=== PATIENT | female | born 2005 | race Caucasian/White ===

== ENCOUNTER 2025-07-26 23:14 | Emergency (ER) | payer OTHER ==
[~2025-07-26] VITALS: Ht 167.6 cm; Wt 70.9 kg
[2025-07-27] MEDS ORDERED: IBUPROFEN 800 MG TAB PO ONE (03:30)
[2025-07-27] MEDS ORDERED: LIDOCAINE HCL 4% 1 EACH PATCH TD ONE (03:30)
[2025-07-27] MEDS ORDERED: WELLBUTRIN SR100 MG PO (03:31)
[2025-07-27] MEDS ORDERED: IBU800 MG PO (03:37)
[2025-07-27] MEDS ORDERED: LIDODERM1 EACH TOP (03:37)
[2025-07-27 03:49] VITALS: BP 114/67
== END 2025-07-27 03:50 | disposition home or self-care (01) ==
LOC: ED 23:14
DX: S29.012A Strain of muscle and tendon of back wall of thorax, initial encounter (principal); X50.3XXA Overexertion from repetitive movements, initial encounter; Y99.0 Civilian activity done for income or pay
CPT/HCPCS: 99283; A9270